=== PATIENT | male | born 1940 | race Caucasian/White ===

== ENCOUNTER → 2021-05-21 | Outpatient (CLI) | payer OTHER ==
[~2021-05-21] MED LIST: CHLORTHALIDONE25 MG PO; FLONASE 0.05%50 MCG NASAL; POTASSIUM CHLO10 ME1 PO; PROTONIX40 M2 PO; SIMVASTATIN40 MG PO; TAMSULOSIN HCL0.4 MG PO; VITAMIN C500 M2 PO; ZYRTEC10 M4 PO
[2021-05-21 10:40] LABS: HEMATOCRIT 47.1 % (42.0-52.0); HEMOGLOBIN 15.6 gm/dL (14.0-18.0); MCH 30.5 pg (26.0-34.0); MCHC 33.2 g/dL (28.0-37.0); MCV 91.7 fL (80.0-100.0); RBC 5.14 mil/uL (4.50-6.00); RDW 14.5 % (10.5-14.5); WBC 8.2 thou/uL (4.0-11.0)
[2021-05-21 10:54] LABS: ALBUMIN 3.9 g/dL (3.4-5.0); APTT 30.2 Seconds (24.5-32.8); CALCIUM 9.4 mg/dL (8.5-10.1); CREATININE 0.8 mg/dL (0.7-1.3); INR 0.95; POTASSIUM 4.2 mmol/L (3.5-5.1); PROTIME 10.4 Seconds (10.5-12.1); TOTAL BILIRUBIN 0.6 mg/dL (0.2-1.0); TOTAL PROTEIN 6.8 g/dL (6.4-8.2)
[2021-05-21 11:20] LABS: URINE BILIRUBIN NEGATIVE (Negative); URINE BLOOD NEGATIVE (Negative); URINE CLARITY CLEAR; URINE COLOR YELLOW; URINE GLUCOSE-RANDOM* NEGATIVE (Negative); URINE KETONES NEGATIVE (Negative); URINE LEUKOCYTES-REFLEX NEGATIVE (Negative); URINE NITRITE-REFLEX NEGATIVE (Negative); URINE PROTEIN (DIPSTICK) NEGATIVE (Negative); URINE SPECIFIC GRAVITY 1.025 (1.005-1.035); URINE UROBILINOGEN 0.2 E.U./dl (0.2-1.0)
--- NOTE | 2021-05-22 07:42 | EKG ---
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
== END ==
LOC: PAC 09:46
PROVIDERS: ATTEND Specialist
DX: M50.122 Cervical disc disorder at C5-C6 level with radiculopathy (principal)

== ENCOUNTER → 2021-05-30 | Outpatient (CLI) | payer OTHER | LOC: LAB 10:00 | PROVIDERS: ATTEND Student in an Organized Health Care Education/Training Program | DX: Z20.822 Contact with and (suspected) exposure to COVID-19 (principal) ==

== ENCOUNTER 2021-06-04 08:55 | Observation (INO) | payer OTHER ==
[~2021-06-04] VITALS: Ht 170.2 cm; Wt 97.1 kg
[~2021-06-04 08:55] MED LIST changes: +DOXYCYCLINE 10100 MG PO
[2021-06-04 10:39] LABS: URINE BILIRUBIN NEGATIVE (Negative); URINE BLOOD NEGATIVE (Negative); URINE CLARITY CLEAR; URINE COLOR YELLOW; URINE GLUCOSE-RANDOM* NEGATIVE (Negative); URINE KETONES 2+ (Negative); URINE LEUKOCYTES NEGATIVE (Negative); URINE NITRITE NEGATIVE (Negative); URINE PROTEIN (DIPSTICK) NEGATIVE (Negative); URINE SPECIFIC GRAVITY >= 1.030 (1.005-1.035); URINE UROBILINOGEN 0.2 E.U./dl (0.2-1.0)
[2021-06-04 10:47] VITALS: BP 139/73
[2021-06-04 16:29] VITALS: BP 141/75
--- NOTE | 2021-06-04 17:09 | NUR ---
ASSUMED PT CARE FROM PACU AT 1620. PT IS ALERT & ORIENTED X4. PT HAS IV SITE ON RFA 20 GAUGE SALINE LOCKED. PT IS ON ROOM AIR. PT DAUGHTER AT THE BEDSIDE. PT HAS [facility] [facility] ON BILATERAL KNEE HIGH. FINISHED ADMISSION. NO C/O OF PAIN, NAUSEA AND VOMITING. WILL CONTINUE TO MONITOR PT. FOLLOW POC.
[2021-06-04 21:59] VITALS: BP 137/78
--- NOTE | 2021-06-05 01:46 | NUR ---
ASSUMED PT CARE AT 1900.PT WAS OBSERVED LYING ON HIS BED WATCHING TV AT SHIFT CHANGE.PT ALERT/CALM AND VERY COPERATIVE WITH CARE.PT C/O PAIN TO HIS R NECK AND SHOULDER,MANAGED WITH MED.PT PROGRESSING WELL,LOOKING FORWARD TO BE DC'D LATER TODAY.CALL LIGHT WITHIN REACH.
[2021-06-05 07:08] LABS: BASOPHILS 0.1 % (0.0-2.0); EOSINOPHILS 0.1 % (0.0-3.0); HEMATOCRIT 41.6 % (42.0-52.0); HEMOGLOBIN 13.8 gm/dL (14.0-18.0); MCH 30.5 pg (26.0-34.0); MCHC 33.2 g/dL (28.0-37.0); MCV 91.8 fL (80.0-100.0); MONOCYTES 5.6 % (1.0-8.0); PLATELET COUNT 217 thou/uL (150-400); POLYS 87.2 % (36.0-66.0); RBC 4.53 mil/uL (4.50-6.00); RDW 13.6 % (10.5-14.5); WBC 11.4 thou/uL (4.0-11.0)
[2021-06-05 07:32] LABS: CALCIUM 9.2 mg/dL (8.5-10.1); CREATININE 0.9 mg/dL (0.7-1.3); MAGNESIUM 1.8 mg/dL (1.8-2.4); POTASSIUM 3.2 mmol/L (3.5-5.1)
[2021-06-05 07:56] VITALS: BP 129/52
--- NOTE | 2021-06-05 09:25 | NUR ---
ORDERS RECEIVED FOR EVAL AND TREAT. SPOKE WITH Pt WHO STATES HE HAS BEEN UP SEVERAL TIMES ALREADY AND NOT HAVING ANY DIFFICULTY WITH MOBILITY. Pt IS DECLINING A FORMAL P.T. EVAL BUT AFTER DISCUSSING WITH NURSING, Pt APPEARS SAFE FOR HOME TODAY
--- NOTE | 2021-06-05 09:46 | NUR ---
ASSUMED PT CARE THIS AM. PT IS ALERT & ORIENTED X4. PT HAS IV SITE ON RFA SALINE LOCKED. PT IS STAND BY TO THE BATHROON. PT IS ON ROOM AIR. PT HAS [employer] [facility] KNEE HIGH BILATERAL. NO C/O OF PAIN, NAUSEA AND VOMITING. PT TOLERATED MEDICATION AND WELL. PT IS CURRENTLY SITTING ON THE CHAIR WITH CALL LIGHT WITHIN REACH. WILL CONTINUE TO MONITOR PT. FOLLOW POC.
[2021-06-05 14:03] VITALS: BP 129/52
== END 2021-06-05 15:35 | disposition home or self-care (01) ==
LOC: OR → TBA 15:21 → OR 15:42 → TBA 15:43 → 4S 15:52
PROVIDERS: Nurse Practitioner; ADMIT Hospitalist; ATTEND Specialist
DX: M50.222 Other cervical disc displacement at C5-C6 level (principal); Z20.822 Contact with and (suspected) exposure to COVID-19; I10 Essential (primary) hypertension; E78.5 Hyperlipidemia, unspecified; N40.0 Benign prostatic hyperplasia without lower urinary tract symptoms; K21.9 Gastro-esophageal reflux disease without esophagitis; Z87.891 Personal history of nicotine dependence; Z79.899 Other long term (current) drug therapy
CPT/HCPCS: 50010; 50101; 50402; 51725; 51751; 54118; 56526; 56532; 57103; 58456; 58793; 58846; 59095; 62110; 62900; 70005

== ENCOUNTER → 2021-07-18 | Outpatient (CLI) | payer OTHER | LOC: RAD 11:58 | PROVIDERS: ATTEND Nurse Practitioner Family | DX: M43.22 Fusion of spine, cervical region (principal); Z98.1 Arthrodesis status ==